=== PATIENT | male | born 1950 | race Caucasian/White ===

== ENCOUNTER 2017-06-17 07:48 | Emergency (ER) | payer BC ==
[2017-06-17 07:55] VITALS: BP 132/83
[2017-06-17] MEDS ORDERED: cefTRIAXone VIAL(*) 1,000 MG VIAL IM ONE (08:03)
[2017-06-17] MEDS ORDERED: predniSONE TAB* 20 MG PO ONE (08:03)
[2017-06-17] MEDS ORDERED: diPHENhydraMINE PO* 50 MG PO ONE (08:04)
[2017-06-17] MEDS ORDERED: Lidocaine 1% MPF* 2 ML VIAL INJ ONE (08:10)
--- NOTE | 2017-06-17 08:18 | UC ---
Skin Complaint HPI - HPI Summary HPI Summary: STUNG BY A BEE RIGHT ON HAND WHILE SPRAYING A NEST LAST NIGHT. STARTED SWELLING SO TOOK 50MG BENADRYL. THIS MORNING HAND IS EVEN MORE SWOLLEN AND RED WITH STREAKING UP PROXIMALLY. NO RESPIRATORY INVOLVEMENT, FEVER, NAUSEA. PT IS LEFT HANDED. - History of Current Complaint Chief Complaint: UCSkin Time Seen by Provider: 06/17/17 07:58 Stated Complaint: BEE STING Hx Obtained From: Patient, Family/Paper Inspector - Onset/Duration: Gradual Onset, Lasting Hours, Still Present Skin Exposure Onset/Duration: Hours Ago Timing: Constant Onset Severity: Moderate Current Severity: Moderate Pain Intensity: 1 Pain Scale Used: 0-10 Numeric Character: Swelling, Pruritus, Pain, Redness Aggravating: Touch Alleviating: Nothing Associated Signs & Symptoms: Positive: Tenderness, Red Streaks. Negative: Nausea, Diaphoresis, Difficulty Breathing, Fever, Chills, Wheezing, Chest Pain, Hoarseness, Throat Tightening, Syncope, Drainage, Bruising Related History: Insect Bite/Sting - Allergy/Home Medications Allergies/Adverse Reactions: Allergies Allergy/AdvReac Type Severity Reaction Status Date / Time No Known Allergies Allergy Verified 06/17/17 07:55 Home Medications: Home Medications Atorvastatin* [Lipitor 10 MG*] 10 mg PO DAILY 06/17/17 [History Confirmed ] Review of Systems Constitutional: Negative Skin: Other - ERYTHEMA Respiratory: Negative Cardiovascular: Negative Gastrointestinal: Negative Musculoskeletal: Edema All Other Systems Reviewed And Are Negative: Yes PMH/Surg Hx/FS Hx/Imm Hx Cardiovascular History: Atrial Fibrillation - Surgical History Surgical History: Yes Surgery Procedure, Year, and Place: 9 years ago inguinal hernia repair/hiatal hernia repair. - Family History Known Family History: Negative: Hypertension, Diabetes - Social History Alcohol Use: None Substance Use Type: None Smoking Status (MU): Never Smoked Tobacco Type: Smokeless Tobacco Amount Used/How Often: CHEWS TOBACCO 1-2 TIMES DAILY FOR MANY YRS - Immunization History Most Recent Influenza Vaccination: DID NOT RECEIVE IN 2012 Most Recent Tetanus Shot: WITHIN PAST 10 YRS Most Recent Pneumonia Vaccination: NEVER Vaccination Up to Date: Yes Physical Exam Triage Information Reviewed: Yes Appearance: Well-Appearing, No Pain Distress, Well-Nourished Vital Signs: Initial Vital Signs Temp 97.5 F 06/17/17 07:49 Pulse 85 06/17/17 07:49 Resp 18 06/17/17 07:49 BP 132/83 06/17/17 07:49 Pulse Ox 100 06/17/17 07:49 Vital Signs Reviewed: Yes Eyes: Positive: Conjunctiva Clear ENT: Positive: Hearing grossly normal Neck: Positive: Supple Respiratory: Positive: No respiratory distress, No accessory muscle use Cardiovascular: Positive: Pulses Normal Abdomen Description: Positive: Soft Musculoskeletal: Positive: ROM Intact, Edema @ - RIGHT HAND AND FOREARM Neurological: Positive: Alert Psychological: Positive: Normal Response To Family, Age Appropriate Behavior Skin: Positive: Other - ERYTHEMA RIGHT HAND STREAKING UP TO AXILLA Re-Evaluation - Re-Evaluation First Eval Re-Evaluation Time: 08:40 - SWELLING SEEMS BETTER AFTER SOLUMEDROL, PRENISONE AND BENDRYL. READY TO GO HOME Change: Improved Course/Dx - Course Course Of Treatment: RIGHT HAND EDEMA SUCH THAT RING ON 4TH FINGER UNABLE TO BE REMOVED. RING SUCCESSFULLY REMOVED USING MASK ELASTIC. PT TREATED FOR ALLERGY AND INFECTION WITH STEROIDS, ANTIHISTAMINES AND ANTIBIOTICS. - Diagnoses Provider Diagnoses: ALLERGIC REACTION AND CELLULITIS S/P BEE STING - RIGHT HAND Discharge - Discharge Plan Condition: Stable Disposition: HOME Prescriptions: Cephalexin CAP* [Keflex 500 CAP*] 1,000 mg PO BID #28 cap predniSONE TAB* [Deltasone TAB*] 50 mg PO DAILY #4 tab Patient Education Materials: Cellulitis (ED), Insect Bite or Sting (ED) Referrals: Adelso Osuna MD [Primary Care Provider] - If Needed Additional Instructions: YOU RECEIVED 1G ROCEPHIN, 60MG PREDNISONE AND 50MG BENADRYL HERE TODAY. TAKE PREDNISONE STARTING TOMORROW AND ANTIBIOTIC STARTING TONIGHT. AVOID HEAT AND HOT WATER TAKE OTC ANTIHISTAMINE DAILY (CLARITIN (LORATADINE), ZYRTEC (CETIRIZINE) OR KIRSTEN (FEXOFENADINE) IN THE MORNING, BENADRYL AT NIGHT) DO NOT SCRATCH KEEP COOL, CLEAN AND DRY SEEK FOLLOW-UP IF NOT IMPROVING EXPECTED.
== END 2017-06-17 08:49 | disposition home or self-care (01) ==
LOC: UCEAST 07:48
DX: T63.441A Toxic effect of venom of bees, accidental (unintentional), initial encounter (principal); Y92.9 Unspecified place or not applicable; L03.113 Cellulitis of right upper limb; I48.91 Unspecified atrial fibrillation; F17.220 Nicotine dependence, chewing tobacco, uncomplicated
CPT/HCPCS: 96372; 99212; A9270-GY; G0463; J0696; J7512

== ENCOUNTER 2024-09-15 11:51 | Observation (INO) ==
[2024-09-15] MEDS: Iodixanol 320 (CONTRAST) 100 ML SDV IV ONE (12:02)
[2024-09-15 12:13] LABS: ABS Eosinophils 0.1 10^3/uL (0.0-0.5); ABS Lymphocytes 1.1 10^3/uL (1.0-4.8); ABS Monocytes 0.6 10^3/uL (0.0-1.1); ABS Neutrophils 4.5 10^3/uL (1.5-7.6); Eosinophil % 1.4 %; Hematocrit 42.5 % (38-53); Hemoglobin 14.5 g/dL (13.2-16.3); Lymphocyte % 17.6 %; Mean Corpuscular Hemoglobin 29.9 pg (27-33); Mean Corpuscular Hgb Conc 34.2 g/dL (31-36); Mean Corpuscular Volume 87.4 fL (80-97); Mean Platelet Volume 8.1 fL (7.5-11.2); Nucleated Red Blood Cells % 0.1 %/100WBC (0.0-0.8); Platelet Count 240 10^3/uL (150-450); Red Blood Count 4.87 10^6/uL (4.06-5.63); Red Cell Distribution Width 13.6 % (12-17); White Blood Count 6.4 10^3/uL (3.6-10.2)
[2024-09-15 12:19] LABS: Activated Partial Thrombo Time 28.8 seconds (26.0-38.0); INR 1.12 (0.85-1.14)
[2024-09-15 12:20] LABS: Albumin 4.7 g/dL (3.2-5.2); Albumin/Globulin Ratio 1.7 (1-3); Calcium 9.8 mg/dL (8.6-10.3); Creatinine, Serum 1.18 mg/dL (0.67-1.17); Direct Bilirubin 0.2 mg/dL (0.03-0.18); Globulin 2.8 g/dL (2-4); HDL Cholesterol 46.1 mg/dL; Indirect Bilirubin 0.6 mg/dL (0.3-1.0); Potassium 3.9 mmol/L (3.5-5.0); Total Bilirubin 0.8 mg/dL (0.2-1.0); Total Protein 7.5 g/dL (6.4-8.9); eGFR CKD-EPI 65.6 (>60)
[2024-09-15 14:17] LABS: Urine Appearance Clear; Urine Bilirubin Negative (Negative); Urine Blood Negative (Negative); Urine Color Colorless; Urine Glucose Negative (Negative); Urine Ketones Negative (Negative); Urine Nitrite Negative (Negative); Urine Protein Negative (Negative); Urine Specific Gravity 1.026 (1.002-1.030); Urine Urobilinogen Negative (Negative); Urine pH 5.5 (5.0-8.0)
[2024-09-15 15:35] LABS: TSH Ultra Thyroid Stim Horm 1.42 mcIU/mL (0.34-5.60)
[2024-09-15 15:46] LABS: Folate 9.79 ng/mL (5.90-24.80)
[2024-09-15] MEDS: Enoxaparin 40 MG/0.4 ML SYR SUBCUT SCH (22:23)
[2024-09-16 10:46] VITALS: BP 142/74
[2024-09-16] MEDS: Sulfur Hexaflouride MICROSPHR 25 MG VIAL IV PRN (11:33)
[2024-09-16] MEDS: Sulfur Hexaflouride MICROSPHR 25 MG VIAL ONE (11:40)
== END 2024-09-16 18:11 | disposition home or self-care (01) ==
LOC: EDHOLD 11:51 → ED 11:51 → MED 21:01
PROVIDERS: ADMIT Hospitalist; ATTEND Hospitalist